=== PATIENT | male | born 1950 | race African-American/Black ===

== ENCOUNTER 2017-07-20 19:21 | Emergency (ER) | payer MEDICARE, OTHER ==
[2017-07-20] MEDS: DICYCLOMINE 20 MG INJ IM (19:30)
[2017-07-20 20:05] LABS: ADD MAN DIFF? NO
[2017-07-20 20:08] LABS: WHITE BLOOD COUNT 9.7 10^3/ul (4.8-10.8)
[2017-07-20 20:08] LABS: BASOPHILS % 0.3 % (0.0-2.0); EOSINOPHILS % 0.4 % (0.0-7.0); HEMATOCRIT 41.2 % (42.0-52.0); HEMOGLOBIN 14.1 g/dl (14.0-18.0); LYMPHOCYTES # 1.3 10^3/ul (0.8-2.9); LYMPHOCYTES % 12.8 % (15.0-51.0); MEAN CORPUSCULAR HEMOGLOBIN 31.7 pg (29.0-33.0); MEAN CORPUSCULAR HGB CONC 34.2 g/dl (32.0-37.0); MEAN CORPUSCULAR VOLUME 92.6 fl (82.0-101.0); MEAN PLATELET VOLUME 10.5 fl (7.4-10.4); MONOCYTE # 0.5 10^3/ul (0.3-0.9); MONOCYTES % 5.4 % (0.0-11.0); NEUTROPHIL # 7.9 10^3/ul (1.6-7.5); NEUTROPHILS % 80.8 % (39.0-77.0); PLATELET COUNT 152 10^3/UL (140-415); RED BLOOD COUNT 4.45 10^6/ul (4.70-6.10); RED CELL DISTRIBUTION WIDTH 12.1 % (11.5-14.5)
[2017-07-20] MEDS: ONDANSETRON 4 MG INJ IV ×2 (20:15→20:58)
[2017-07-20] MEDS: SOD CHLORIDE 0.9% 1,000 ML IV (20:15)
[2017-07-20] MEDS: morphine 4 MG/ML VIAL IV (20:15)
[2017-07-20 20:39] LABS: ALANINE AMINOTRANSFERASE 42 IU/L (13-69); ALBUMIN/GLOBULIN RATIO 1.21; ALKALINE PHOSPHATASE 99 IU/L (42-121); ANION GAP 20 (8-16); ASPARTATE AMINO TRANSFERASE 33 IU/L (15-46); BILIRUBIN,INDIRECT 0.4 mg/dl (0-1.1); BILIRUBIN,TOTAL 0.4 mg/dl (0.2-1.3); BLOOD UREA NITROGEN 23 mg/dl (7-20); CALCIUM 12.1 mg/dl (8.4-10.2); CARBON DIOXIDE 24 mmol/L (21-31); CHLORIDE 102 mmol/L (97-110); CREATININE 1.29 mg/dl (0.61-1.24); GLUCOSE 210 mg/dl (70-220); LIPASE 242 U/L (23-300); POTASSIUM 5.3 mmol/L (3.5-5.1); SODIUM 141 mmol/L (135-144); TOTAL PROTEIN 9.1 g/dl (6.1-8.1)
[2017-07-20] MEDS: HYDROmorphONE 0.5 MG/0.5 ML SYG IV (20:58)
[2017-07-20] MEDS: LORAZEPAM 2 MG INJ IV (20:58)
== END 2017-07-20 22:47 | disposition home or self-care (01) ==
LOC: E/R 19:21
DX: R10.84 Generalized abdominal pain (principal); E86.0 Dehydration; N28.9 Disorder of kidney and ureter, unspecified
CPT/HCPCS: 36415; 74176; 80053; 83690; 85025; 96372; 96374; 96375; 96376; 99285-25